=== PATIENT | male | born 1935 | race Caucasian/White ===

== ENCOUNTER → 2017-01-14 | Outpatient (CLI) | payer MEDICARE, OTHER ==
[~2017-01-14] MED LIST: CARDIZEM SR120 MG PO; COREG6.25 MG PO; IRON325 M1 PO; NAPROSYN500 MG PO; PRADAXA150 MG PO; PROSCAR5 MG PO; ZESTRIL5 MG PO; ZOCOR40 MG PO
== END | disposition short-term general hospital (02) ==
LOC: CLCARD 10:52
DX: Z48.812 Encounter for surgical aftercare following surgery on the circulatory system (principal); I48.0 Paroxysmal atrial fibrillation; E78.5 Hyperlipidemia, unspecified; I10 Essential (primary) hypertension; I35.8 Other nonrheumatic aortic valve disorders; I34.0 Nonrheumatic mitral (valve) insufficiency; Z95.0 Presence of cardiac pacemaker